=== PATIENT | male | born 1975 | race Two or more races ===

== ENCOUNTER 2019-03-24 23:31 | Emergency (ER) | payer SELFPAY ==
[~2019-03-24] VITALS: Ht 177.8 cm; Wt 79.4 kg
[2019-03-24] MEDS ORDERED: ACETAMINOPHEN 500 MG TAB PO ONE (23:59)
[2019-03-25] MEDS ORDERED: ACETAMINOPHEN 500 MG TAB PO ONE
[2019-03-25 03:42] VITALS: BP 114/69
[2019-03-25] MEDS ORDERED: guaiFENesin-DM 100/10mg/5ml SYR PO ONE (03:45)
[2019-03-25] MEDS ORDERED: IPRATROPIUM BROM 0.5 MG/2.5ML INH SOL NEB ONE (03:45)
[2019-03-25] MEDS ORDERED: IBUPROFEN 800 MG TAB PO ONE (03:45)
[2019-03-25] MEDS ORDERED: methylPREDNISolone SOD SUCC 125 MG/2 ML VL IM ONE (03:45)
[2019-03-25] MEDS ORDERED: ALBUTEROL SULF 2.5 MG/0.5ML(0.5%) NEB SOLN NEB ONE (03:45)
[2019-03-25] MEDS ORDERED: ONDANSETRON ODT 4 MG TAB PO ONE (05:00)
== END 2019-03-25 05:51 | disposition home or self-care (01) ==
LOC: ER 23:36
DX: J40 Bronchitis, not specified as acute or chronic (principal)
CPT/HCPCS: 71045; 96372; 99284; J2930; J7611; J7644; Q0162